=== PATIENT | female | born 1970 | race Caucasian/White ===

== ENCOUNTER 2018-07-18 11:03 | Day surgery (SDC) | payer MEDICAID ==
[2018-07-18] MEDS ORDERED: SOD CHLORIDE 0.9% 1,000 ML IV (12:30)
[2018-07-18] MEDS ORDERED: CEFAZOLIN 1 GM/50 ML (PMX) 50 ML IVPB (12:30)
[2018-07-18 13:47] LABS: ADD MAN DIFF? NO
[2018-07-18 13:50] LABS: BASOPHILS % 0.3 % (0.0-2.0); EOSINOPHILS # 0.1 10^3/ul (0.0-0.5); EOSINOPHILS % 1.1 % (0.0-7.0); HEMATOCRIT 39.9 % (37.0-47.0); HEMOGLOBIN 13.1 g/dl (12.0-16.0); LYMPHOCYTES # 3.3 10^3/ul (0.8-2.9); LYMPHOCYTES % 30.1 % (15.0-51.0); MEAN CORPUSCULAR HEMOGLOBIN 28.1 pg (29.0-33.0); MEAN CORPUSCULAR HGB CONC 32.8 g/dl (32.0-37.0); MEAN CORPUSCULAR VOLUME 85.4 fl (82.0-101.0); MEAN PLATELET VOLUME 9.7 fl (7.4-10.4); MONOCYTE # 0.8 10^3/ul (0.3-0.9); MONOCYTES % 7.3 % (0.0-11.0); NEUTROPHIL # 6.7 10^3/ul (1.6-7.5); NEUTROPHILS % 60.8 % (39.0-77.0); PLATELET COUNT 280 10^3/UL (140-415); RED BLOOD COUNT 4.67 10^6/ul (4.20-5.40); RED CELL DISTRIBUTION WIDTH 13.1 % (11.5-14.5)
[2018-07-18 13:50] LABS: WHITE BLOOD COUNT 11.1 10^3/ul (4.8-10.8)
[2018-07-18 14:00] LABS: ADD UMIC YES; UR ASCORBIC ACID 20 mg/dL (NEGATIVE); UR BILIRUBIN (Dip) NEGATIVE (NEGATIVE); UR BLOOD (Dip) NEGATIVE (NEGATIVE); UR CLARITY CLOUDY (CLEAR); UR COLOR YELLOW (YELLOW); UR GLUCOSE (Dip) NEGATIVE (NEGATIVE); UR KETONES (Dip) 2+ mg/dL (NEGATIVE); UR LEUKOCYTE ESTERASE (Dip) NEGATIVE Leu/ul (NEGATIVE); UR MUCUS MODERATE /HPF (NONE SEEN); UR NITRITE (Dip) NEGATIVE (NEGATIVE); UR RBC 3 /HPF (0-5); UR SPECIFIC GRAVITY (Dip) 1.026 (1.003-1.030); UR SQUAMOUS EPITHELIAL CELL MANY /HPF (FEW); UR TOTAL PROTEIN (Dip) NEGATIVE (NEGATIVE); UR UROBILINOGEN (Dip) NEGATIVE (NEGATIVE); UR WBC 2 /HPF (0-5)
[2018-07-18 14:07] LABS: ALANINE AMINOTRANSFERASE 29 IU/L (13-69); ALBUMIN 3.8 g/dl (3.3-4.9); ALBUMIN/GLOBULIN RATIO 1.11; ALKALINE PHOSPHATASE 78 IU/L (42-121); ANION GAP 11 (5-13); ASPARTATE AMINO TRANSFERASE 31 IU/L (15-46); BILIRUBIN,INDIRECT 0.3 mg/dl (0-1.1); BILIRUBIN,TOTAL 0.3 mg/dl (0.2-1.3); BLOOD UREA NITROGEN 9 mg/dl (7-20); CALCIUM 8.8 mg/dl (8.4-10.2); CARBON DIOXIDE 23 mmol/L (21-31); CHLORIDE 106 mmol/L (97-110); CREATININE 0.36 mg/dl (0.44-1.00); Estimated GFR > 60 mL/min (>60); GLUCOSE 90 mg/dl (70-220); POTASSIUM 3.7 mmol/L (3.5-5.1); SODIUM 140 mmol/L (135-144); TOTAL PROTEIN 7.2 g/dl (6.1-8.1)
[2018-07-18 14:09] LABS: INR 0.93; PROTIME 12.6 Sec (11.9-14.9)
[2018-07-18 14:11] LABS: PARTIAL THROMBOPLASTIN TIME 24.4 Sec (23.0-35.0)
[2018-07-18] MEDS ORDERED: PROPOFOL 20 ML (14:54)
[2018-07-18] MEDS ORDERED: FENTAnyl 50 MCG/ML VIAL (14:54)
[2018-07-18] MEDS ORDERED: MIDAZOLAM 1 MG/ML 2 ML INJ (14:54)
[2018-07-18] MEDS ORDERED: CEFAZOLIN 1 GM INJ (14:54)
[2018-07-18] MEDS ORDERED: KETOROLAC 30 MG INJ (15:27)
[2018-07-18] MEDS ORDERED: DEXAMETHASONE 4 MG/ML 1 ML INJ (15:27)
[2018-07-18] MEDS ORDERED: ONDANSETRON 4 MG INJ (15:27)
[2018-07-18] MEDS ORDERED: METOCLOPRAMIDE 10 MG INJ (15:27)
[2018-07-18] MEDS ORDERED: SUCCINYLCHOLINE CHLORIDE 100 MG/5 ML SYG IV (15:33)
[2018-07-19] MEDS ORDERED: INFLUENZA VIRUS VACCINE 0.5 ML (DISPENSING) IM* (09:00)
== END 2018-07-18 17:15 | disposition home or self-care (01) ==
LOC: SDS 11:03
DX: D24.2 Benign neoplasm of left breast (principal); E66.9 Obesity, unspecified; Z68.41 Body mass index [BMI] 40.0-44.9, adult
CPT/HCPCS: 19120; 80053; 81001; 84703; 85025; 85610; 85730; 88307